=== PATIENT | male | born 1985 | race Caucasian/White ===

== ENCOUNTER 2020-05-27 14:58 | Outpatient (CLI) | payer OTHER | END 2020-05-27 15:20 | disposition home or self-care (01) | LOC: RAD 14:58 | PROVIDERS: ATTEND Surgery | DX: N50.89 Other specified disorders of the male genital organs (principal); R10.2 Pelvic and perineal pain ==

== ENCOUNTER 2020-08-31 16:18 | Emergency (ER) | payer OTHER ==
[~2020-08-31] VITALS: Ht 203.2 cm; Wt 145.1 kg
== END 2020-08-31 20:16 | disposition home or self-care (01) ==
LOC: ER 16:18
DX: R10.816 Epigastric abdominal tenderness (principal); R10.13 Epigastric pain; Z20.828 Contact with and (suspected) exposure to other viral communicable diseases

== ENCOUNTER 2021-01-25 19:06 | Emergency (ER) | payer OTHER ==
[~2021-01-25] VITALS: Ht 203.2 cm; Wt 140.6 kg
[2021-01-25] MEDS ORDERED: LOSARTAN (19:21)
[2021-01-25] MEDS ORDERED: MEDROLPACK PO (22:55)
[2021-01-25] MEDS ORDERED: KETO10TA2 PO (22:55)
[2021-01-25] MEDS ORDERED: NORFLEX100MG PO (22:55)
== END 2021-01-25 23:02 | disposition home or self-care (01) ==
LOC: ER 19:06
DX: M25.511 Pain in right shoulder (principal)

== ENCOUNTER 2021-04-05 11:15 | Emergency (ER) | payer OTHER ==
[~2021-04-05] VITALS: Ht 203.2 cm; Wt 140.6 kg
[~2021-04-05 11:15] MED LIST: KETO10TA2 PO; LOSARTAN; MEDROLPACK PO; NORFLEX100MG PO
[2021-04-05] MEDS ORDERED: AVAPRO75 MG PO (11:54)
[2021-04-05] MEDS ORDERED: PEPCID AC20 MG PO (17:43)
== END 2021-04-05 18:12 | disposition home or self-care (01) ==
LOC: ER 11:15
DX: A08.39 Other viral enteritis (principal); Z03.818 Encounter for observation for suspected exposure to other biological agents ruled out

== ENCOUNTER 2021-09-20 17:04 | Emergency (ER) | payer OTHER ==
[~2021-09-20] VITALS: Ht 203.2 cm; Wt 142.9 kg
[~2021-09-20 17:04] MED LIST changes: +AVAPRO75 MG PO; +PEPCID AC20 MG PO
[2021-09-20] MEDS ORDERED: DICLOFENAC SODI75 MG PO (19:14)
== END 2021-09-20 20:16 | disposition home or self-care (01) ==
LOC: ER 17:04
DX: M79.10 Myalgia, unspecified site (principal)

== ENCOUNTER 2022-02-09 20:38 | Emergency (ER) | payer OTHER ==
[~2022-02-09] VITALS: Ht 195.6 cm; Wt 131.5 kg
[~2022-02-09 20:38] MED LIST changes: +DICLOFENAC SODI75 MG PO
[2022-02-09] MEDS ORDERED: ORPHENADRINE C100 MG PO (23:10)
== END 2022-02-10 | disposition home or self-care (01) ==
LOC: ER 20:38
DX: M62.838 Other muscle spasm (principal); F41.9 Anxiety disorder, unspecified

== ENCOUNTER 2022-09-29 19:02 | Emergency (ER) | payer OTHER ==
[~2022-09-29] VITALS: Ht 203.2 cm; Wt 147.4 kg
[~2022-09-29 19:02] MED LIST changes: +ORPHENADRINE C100 MG PO
[2022-09-29] MEDS ORDERED: DIOVAN320 MG (20:03)
[2022-09-30] MEDS ORDERED: ZYRTEC10 MG PO ×2 (02:48→02:49)
[2022-09-30] MEDS ORDERED: DOLOGESIC-DF 51 EACH PO ×2 (02:48→02:49)
== END 2022-09-30 02:53 ==
LOC: ER 19:02
DX: B34.8 Other viral infections of unspecified site (principal)

== ENCOUNTER 2022-12-01 20:38 | Emergency (ER) | payer OTHER ==
[~2022-12-01] VITALS: Ht 203.2 cm; Wt 155.1 kg
[~2022-12-01 20:38] MED LIST changes: +DIOVAN320 MG; +DOLOGESIC-DF 51 EACH PO; +ZYRTEC10 MG PO
[2022-12-01] MEDS ORDERED: DICLOFENAC SODI75 MG PO (22:03)
== END 2022-12-01 22:18 | disposition home or self-care (01) ==
LOC: ER 20:38
DX: M25.561 Pain in right knee (principal)